=== PATIENT | male | born 1960 | race American Indian/Alaskan Native ===

== ENCOUNTER 2019-12-15 09:19 | Emergency (ER) | payer OTHER ==
[2019-12-15] MEDS ORDERED: KETOROLAC 30 MG/1 ML INJ IV ONE (10:22)
[2019-12-15] MEDS ORDERED: COLCHICINE 0.6 MG CAP PO ONE ×2 (10:22→11:22)
[2019-12-15] MEDS ORDERED: ASPIRIN 325 MG TAB PO ONE (10:22)
[2019-12-15] MEDS ORDERED: MORPHINE 4 MG/1 ML INJ IV ONE (10:22)
--- NOTE | 2019-12-15 10:28 | Emergency Department Report ---
ED Chest Pain HPI - General Chief Complaint: Chest Pain Stated Complaint: GOUT/LEG PAIN Time Seen by Provider: 12/15/19 10:21 Source: EMS Mode of arrival: Ambulatory Limitations: No Limitations - History of Present Illness Initial Comments: Patient is a 59-year-old F [place] Citizen male with past medical history of hypertension and gout who is been out of his lisinopril for the past week who is complaining of 4 days of chest discomfort. Patient states that he is getting sharp pains in the left chest with associated shortness of breath. States that this occurs randomly and can last seconds to minutes at a time. He denies cough fevers or chills. He states there is no pleuritic component but he states he is quite short of breath secondary to pain. Feels as though his heart is racing at times. Patient also at the same time is also developed some pain in his bilateral legs. He states the majority of his pain is in his left great toe which is where he normally gets gouty flareups. He is out of his indomethacin at this time. Patient states this episode is slightly different and that he has pain radiating up through the calf up to the level of the knee bilaterally. Pain is 8 out of 10 in severity. He denies nausea vomiting diarrhea fevers or chills. - Related Data Previous Rx's Medication Instructions Recorded Last Taken Type Indomethacin 25 mg PO DAILY #20 cap 12/15/19 Unknown Rx Lisinopril [Zestril] 10 mg PO DAILY #30 12/15/19 Unknown Rx Allergies Allergy/AdvReac Type Severity Reaction Status Date / Time No Known Allergies Allergy Verified 12/15/19 09:30 Heart Score - HEART Score History: Slightly suspicious EKG: Non-specific Age: 45-65 Risk factors: 1-2 risk factors Troponin: < normal limit HEART Score: 3 ED Review of Systems ROS: Stated complaint: GOUT/LEG PAIN Other details as noted in HPI Comment: All other systems reviewed and negative ED Past Medical Hx - Past Medical History Previous Medical History?: Yes Hx Hypertension: Yes Additional medical history: gout - Surgical History Past Surgical History?: No - Social History Smoking Status: Never Smoker Substance Use Type: None - Medications Home Medications: Home Medications Medication Instructions Recorded Confirmed Last Taken Type Indomethacin 25 mg PO DAILY #20 cap 12/15/19 Unknown Rx Lisinopril [Zestril] 10 mg PO DAILY #30 12/15/19 Unknown Rx ED Physical Exam - General Limitations: No Limitations General appearance: alert, in distress (Rapid breathing secondary to pain) - Head Head exam: Present: atraumatic, normocephalic - Eye Eye exam: Present: normal appearance. Absent: PERRL, EOMI - ENT ENT exam: Present: mucous membranes moist - Neck Neck exam: Present: normal inspection - Respiratory Respiratory exam: Present: normal lung sounds bilaterally. Absent: respiratory distress, wheezes, rales, rhonchi - Cardiovascular Cardiovascular Exam: Present: normal rhythm, tachycardia, normal heart sounds. Absent: systolic murmur, diastolic murmur, rubs, gallop - GI/Abdominal GI/Abdominal exam: Present: soft, normal bowel sounds. Absent: distended, tenderness, guarding, rebound - Rectal Rectal exam: Present: deferred - Extremities Exam Extremities exam: Present: normal inspection, joint swelling (Left great toe appears swollen and mildly erythematous with pain with palpation). Absent: calf tenderness - Back Exam Back exam: Present: normal inspection - Neurological Exam Neurological exam: Present: alert, oriented X3, CN II-XII intact. Absent: motor sensory deficit - Psychiatric Psychiatric exam: Present: normal affect, normal mood - Skin Skin exam: Present: warm, dry, intact, normal color. Absent: rash ED Course Vital Signs 12/15/19 12/15/19 09:22 11:22 Temperature 98 F Pulse Rate 113 H Respiratory 18 18 Rate Blood Pressure 131/89 O2 Sat by Pulse 98 100 Oximetry ED Medical Decision Making - Lab Data Result diagrams: 12/15/19 10:26 12/15/19 10:26 Lab Results 12/15/19 12/15/19 12/15/19 Range/Units 10:26 10:26 10:26 WBC 11.1 H (4.5-11.0) K/mm3 RBC 5.65 H (3.65-5.03) M/mm3 Hgb 15.6 H (11.8-15.2) gm/dl Hct 46.7 H (35.5-45.6) % MCV 83 L (84-94) fl MCH 28 (28-32) pg MCHC 33 (32-34) % RDW 14.1 (13.2-15.2) % Plt Count 306 (140-440) K/mm3 Lymph % (Auto) 6.6 L (13.4-35.0) % [place] % (Auto) 10.3 H (0.0-7.3) % Eos % (Auto) 0.4 (0.0-4.3) % Baso % (Auto) 0.3 (0.0-1.8) % Lymph # (Auto) 0.7 L (1.2-5.4) K/mm3 [place] # (Auto) 1.1 H (0.0-0.8) K/mm3 Eos # (Auto) 0.0 (0.0-0.4) K/mm3 Baso # (Auto) 0.0 (0.0-0.1) K/mm3 Seg Neutrophils % 82.4 H (40.0-70.0) % Seg Neutrophils # 9.1 H (1.8-7.7) K/mm3 PT 14.5 (12.2-14.9) Sec. INR 1.12 (0.87-1.13) APTT 26.6 (24.2-36.6) Sec. D-Dimer 853.81 H (0-234) ng/mlDDU Sodium 134 L (137-145) mmol/L Potassium 5.0 (3.6-5.0) mmol/L Chloride 92.9 L (98-107) mmol/L Carbon Dioxide 25 (22-30) mmol/L Anion Gap 21 mmol/L BUN 18 (9-20) mg/dL Creatinine 0.9 (0.8-1.3) mg/dL Estimated GFR > 60 ml/min BUN/Creatinine Ratio 20 % Glucose 137 H (75-100) mg/dL Calcium 10.3 H (8.4-10.2) mg/dL Troponin T < 0.010 (0.00-0.029) ng/mL 12/15/19 12/15/19 Range/Units 10:26 12:30 WBC (4.5-11.0) K/mm3 RBC (3.65-5.03) M/mm3 Hgb (11.8-15.2) gm/dl Hct (35.5-45.6) % MCV (84-94) fl MCH (28-32) pg MCHC (32-34) % RDW (13.2-15.2) % Plt Count (140-440) K/mm3 Lymph % (Auto) (13.4-35.0) % [place] % (Auto) (0.0-7.3) % Eos % (Auto) (0.0-4.3) % Baso % (Auto) (0.0-1.8) % Lymph # (Auto) (1.2-5.4) K/mm3 [place] # (Auto) (0.0-0.8) K/mm3 Eos # (Auto) (0.0-0.4) K/mm3 Baso # (Auto) (0.0-0.1) K/mm3 Seg Neutrophils % (40.0-70.0) % Seg Neutrophils # (1.8-7.7) K/mm3 PT (12.2-14.9) Sec. INR (0.87-1.13) APTT (24.2-36.6) Sec. D-Dimer (0-234) ng/mlDDU Sodium (137-145) mmol/L Potassium (3.6-5.0) mmol/L Chloride (98-107) mmol/L Carbon Dioxide (22-30) mmol/L Anion Gap mmol/L BUN (9-20) mg/dL Creatinine (0.8-1.3) mg/dL Estimated GFR ml/min BUN/Creatinine Ratio % Glucose (75-100) mg/dL Calcium (8.4-10.2) mg/dL Troponin T < 0.010 < 0.010 (0.00-0.029) ng/mL - EKG Data -: EKG Interpreted by Id - EKG Data 12/15/19 14:06 EKG shows sinus rhythm rate 88. [place] is normal intervals are normal. No ST segment elevation or depressions. - Radiology Data Ordering Physician: STEPH DANG MD Date of Service: 12/15/19 Procedure(s): XR chest routine 2V Accession Number(s): [id number] cc: STEPH DANG MD Fluoro Time In Minutes: CHEST 2 VIEWS INDICATION / CLINICAL INFORMATION: chest pain. COMPARISON: None available. FINDINGS: SUPPORT DEVICES: None. HEART / MEDIASTINUM: No significant abnormality. LUNGS / PLEURA: No significant pulmonary or pleural abnormality. No pneumoth orax. ADDITIONAL FINDINGS: No significant additional findings. IMPRESSION: 1. No acute findings. Signer Name: Lion Cruz MD Signed: 12/15/2019 12:39 PM Workstation Name: [id number] Patient: ARIAN SUTHERLAND MR#: [id number] : 1960 Acct:[id number] Age/Sex: 59 / M ADM Date: 12/15/19 Loc: ED Attending Dr: Ordering Physician: STEPH DANG MD Date of Service: 12/15/19 Procedure(s): VL venous duplex LE BILAT Accession Number(s): [id number] cc: STEPH DANG MD VL venous duplex LE BILAT INDICATION / CLINICAL INFORMATION: bilateral leg pain. COMPARISON: None available. FINDINGS: No evidence of deep vein thrombosis in either leg. IMPRESSION: 1. Negative study. Signer Name: Alfred Andersen MD Signed: 12/15/2019 12:21 PM Workstation Name: [id number] Ordering Physician: STEPH DANG MD Date of Service: 12/15/19 Procedure(s): CT angio chest Accession Number(s): [id number] cc: STEPH DANG MD CTA CHEST WITH IV CONTRAST INDICATION: elevated ddimer, chest pain, tachycardia, sob. TECHNIQUE: Axial CT images were obtained through the chest after injection of 100 mL Omnipaque 350 IV contrast. 3 plane MIP reconstructions were produced. All CT scans at this location are performed using CT dose reduction for ALARA by means of automated exposure control. COMPARISON: None available. FINDINGS: Pulmonary Arteries: No pulmonary emboli. Lungs: No significant abnormality. Trachea and Bronchi: No significant abnormality. Heart and Pericardium: No significant abnormality. Vasculature: No significant abnormality. Lymphatics: No lymphadenopathy. Additional Findings: None. Upper Abdomen: No acute findings. Skeletal Structures: No significant osseous abnormality. IMPRESSION: 1. No CT evidence for pulmonary embolism. 2. No acute findings. Signer Name: Lion Cruz MD Signed: 12/15/2019 1:47 PM Workstation Name: [id number] - Medical Decision Making Patient is a 59-year-old F [place] Citizen male who is presenting with sharp intermittent chest pains. Patient also having pain in his bilateral feet knees he has some subjective radiation into his calf. DVT study was negative for acute DVT. No PE found on CT angiogram. Has had 2- troponins. Patient has a low heart score and meets criteria for outpatient therapy. His pain is improved. Patient was treated with 2 doses of colchicine for gouty arthritis and will be restarted on indomethacin and put back on his lisinopril. His facesheet was faxed to [facility] Critical Care Time: Yes (30) Critical care attestation.: If time is entered above; I have spent that time in minutes in the direct care of this critically ill patient, excluding procedure time. ED Disposition Clinical Impression: Chest pain Qualifiers: Chest pain type: unspecified Qualified Code(s): R07.9 - Chest pain, unspecified Gout attack Qualifiers: Gout site: unspecified site Gout etiology: unspecified cause Qualified Code(s): M10.9 - Gout, unspecified Disposition: TO HOME OR SELFCARE Is pt being admited?: No Does the pt Need Aspirin: No Condition: Stable Instructions: Chest Pain (ED), Acute Gouty Arthritis (ED) Prescriptions: Indomethacin 25 mg PO DAILY #20 cap Lisinopril [Zestril] 10 mg PO DAILY #30 [facility]errals: [facility] [Other] - 3-5 Days JOSE L FREEMAN MD [Staff Physician] - 3-5 Days Time of Disposition: 14:26
[2019-12-15] MEDS ORDERED: ONDANSETRON 4 MG/2 ML INJ IV ONE (10:43)
[2019-12-15] MEDS ORDERED: ONDANSETRON 4 MG/2 ML INJ ONE (10:44)
[2019-12-15 10:51] LABS: Basophils % (Auto) 0.3 % (0.0-1.8); Eosinophils % (Auto) 0.4 % (0.0-4.3); Hematocrit 46.7 % (35.5-45.6); Hemoglobin 15.6 gm/dl (11.8-15.2); Lymphocytes # (Auto) 0.7 K/mm3 (1.2-5.4); Lymphocytes % (Auto) 6.6 % (13.4-35.0); Mean Corpuscular HGB Conc 33 % (32-34); Mean Corpuscular Volume 83 fl (84-94); Monocytes # (Auto) 1.1 K/mm3 (0.0-0.8); Monocytes % (Auto) 10.3 % (0.0-7.3); Platelet Count 306 K/mm3 (140-440); Red Blood Count 5.65 M/mm3 (3.65-5.03); Red Cell Distribution Width 14.1 % (13.2-15.2)
[2019-12-15 10:56] LABS: BUN/Creatinine Ratio 20; Blood Urea Nitrogen 18 mg/dL (9-20); Calcium 10.3 mg/dL (8.4-10.2); Hemolysis Index 74
[2019-12-15 11:01] LABS: INR 1.12 (0.87-1.13)
[2019-12-15 11:03] LABS: Partial Thromboplastin Time 26.6 Sec. (24.2-36.6)
[2019-12-15] MEDS ORDERED: SODIUM CHLORIDE 0.9% 1000 ML 1,000 ML IV ONE (11:48)
--- NOTE | 2019-12-15 12:25 | Vascular Lab Report ---
VL venous duplex LE BILAT INDICATION / CLINICAL INFORMATION: bilateral leg pain. COMPARISON: None available. FINDINGS: No evidence of deep vein thrombosis in either leg. IMPRESSION: 1. Negative study. Signer Name: Alfred Andersen MD Signed: 12/15/2019 12:21 PM Workstation Name: [id number]
--- NOTE | 2019-12-15 12:44 | XRay Report ---
CHEST 2 VIEWS INDICATION / CLINICAL INFORMATION: chest pain. COMPARISON: None available. FINDINGS: SUPPORT DEVICES: None. HEART / MEDIASTINUM: No significant abnormality. LUNGS / PLEURA: No significant pulmonary or pleural abnormality. No pneumothorax. ADDITIONAL FINDINGS: No significant additional findings. IMPRESSION: 1. No acute findings. Signer Name: Lion Cruz MD Signed: 12/15/2019 12:39 PM Workstation Name: [id number]
--- NOTE | 2019-12-15 13:52 | Cat Scan Report ---
CTA CHEST WITH IV CONTRAST INDICATION: elevated ddimer, chest pain, tachycardia, sob. TECHNIQUE: Axial CT images were obtained through the chest after injection of 100 mL Omnipaque 350 IV contrast. 3 plane MIP reconstructions were produced. All CT scans at this location are performed using CT dose reduction for ALARA by means of automated exposure control. COMPARISON: None available. FINDINGS: Pulmonary Arteries: No pulmonary emboli. Lungs: No significant abnormality. Trachea and Bronchi: No significant abnormality. Heart and Pericardium: No significant abnormality. Vasculature: No significant abnormality. Lymphatics: No lymphadenopathy. Additional Findings: None. Upper Abdomen: No acute findings. Skeletal Structures: No significant osseous abnormality. IMPRESSION: 1. No CT evidence for pulmonary embolism. 2. No acute findings. Signer Name: Lion Cruz MD Signed: 12/15/2019 1:47 PM Workstation Name: [id number]
[2019-12-15 14:56] VITALS: BP 112/85
== END 2019-12-15 14:54 | disposition home or self-care (01) ==
LOC: ED 09:19
DX: R07.89 Other chest pain (principal); M10.9 Gout, unspecified; I10 Essential (primary) hypertension; Z79.899 Other long term (current) drug therapy
CPT/HCPCS: 36415; 71046; 71275; 80048; 84484; 85025; 85379; 85610; 85730; 93005; 93970; 96361; 96374; 96375; 99285; J1885; J2270; J2405; J7030; Q9967